=== PATIENT | female | born 1975 | race Two or more races ===

== ENCOUNTER 2018-06-12 22:45 | Emergency (ER) | payer MEDICAID ==
[~2018-06-12] VITALS: Ht 154.9 cm; Wt 54.4 kg
[2018-06-12 22:49] VITALS: BP 131/73
== END 2018-06-12 23:08 | disposition home or self-care (01) ==
LOC: ER 22:52
DX: J06.9 Acute upper respiratory infection, unspecified (principal); F17.200 Nicotine dependence, unspecified, uncomplicated; I10 Essential (primary) hypertension; I25.10 Atherosclerotic heart disease of native coronary artery without angina pectoris; E11.9 Type 2 diabetes mellitus without complications; Z90.710 Acquired absence of both cervix and uterus; Z85.41 Personal history of malignant neoplasm of cervix uteri
CPT/HCPCS: Z7502